=== PATIENT | male | born 1980 | race Caucasian/White ===

== ENCOUNTER 2016-07-29 03:50 | Emergency (ER) | payer SELFPAY ==
[~2016-07-29] VITALS: Ht 175.2 cm; Wt 65.8 kg
[2016-07-29 03:52] VITALS: BP 128/79
[2016-07-29] MEDS ORDERED: LISINOPRIL10 M1 PO (03:52)
== END 2016-07-29 06:52 | disposition home or self-care (01) ==
LOC: ED 03:50
DX: S01.112A Laceration without foreign body of left eyelid and periocular area, initial encounter (principal); S00.83XA Contusion of other part of head, initial encounter; F10.129 Alcohol abuse with intoxication, unspecified; Z88.1 Allergy status to other antibiotic agents; V49.88XA Car occupant (driver) (passenger) injured in other specified transport accidents, initial encounter; Y93.89 Activity, other specified; Y92.413 State road as the place of occurrence of the external cause; Y99.9 Unspecified external cause status